=== PATIENT | female | born 1930 | race Caucasian/White ===

== ENCOUNTER → 2017-09-20 | Day surgery (SDC) | payer MEDICARE, BC ==
[~2017-09-20] VITALS: Ht 152.4 cm; Wt 53.5 kg
[~2017-09-20] MED LIST: *morphine SULFATE 10 MG/ML PERIprocedure ONLY ONE; ACETAMINOPHEN 1000 MG/100 ML 100 ML IV ONE; ACETAMINOPHEN/HYDROcodone 325 MG/5 MG TAB PO PRN; ATEN25TA PO; CHLORHEXIDINE GLUCONATE 2 % 1 PACK (2 CLOTHS) TOPICAL PRN; CHLORHEXIDINE GLUCONATE 4% SOLN 120 ML BTL TOPICAL SCH; DESL5TAB4 PO; DO NOT ADM ANY ANTICOAGULANT DRUGS PRN; GENTAMICIN SULFATE 80 MG/2 ML VIAL ONE; HYDR-3799 PO; HYDR200T3 PO; IBAN150T3 PO; LACTATED RINGER'S 1000 ML IV PRN; LANS30CA PO; LIDOCAINE HCL 1% PF 5 ML SYRINGE OTHER ONE; METOPROLOL TARTRATE 25 MG TAB PO PRN; MIRA50TA PO; MORPHINE SULFATE 4 MG/ML INJ IV PUSH PRN; NORC5TAB PO; OMEP40CA2 PO; POVIDONE IODINE 5% (ANTISEPSIS KIT) 4 APPLICATIONS EACH NARE PRN; PRED10 PO; PROPOFOL 200 MG/20 ML AMP IV ONE; VANCOMYCIN 1000 MG/NS 250 ML (for <70 kg) IV SCH; VENL150T PO; ceFAZolin 2 GM PREMIX 50 ML IV SCH
--- NOTE | 2017-09-20 08:29 | PD.OP ---
cc: Willard Del Real MD Operative Report Date of Surgery: Sep 20, 2017 Preoperative Diagnosis: Displaced left distal radius fracture Postoperative Diagnosis: Procedure: Open reduction and fixation left distal radius Anesthesia: Gen. Surgeon: Willard Del Real Tone Cabinet Assembler(s): MARLON Vicente PA-C The surgical procedure was assisted by my physician operating room assistant. My P.A. presence was necessary throughout this case for the manipulation and positioning of the surgical extremity. My P.A. was assisting me throughout the duration of this procedure. The skill set of a physician operating room assistant was medically necessary to complete this procedure. During the surgical case the surgical attendant was working at the back table and the physician operating room assistant was directly assisting me. Operation and Findings: Patient was seen and evaluated preoperatively and found to have a displaced left distal radius fracture. I saw and examined patient preoperatively. I discussed the risk and benefits of surgery in depth with the patient. All of her questions were answered. Informed consent was obtained after detailed discussion of risk and benefits including bleeding, infection, injury to arteries, nerves, and blood vessels, weakness and numbness of hand, and tendon rupture. Informed consent was obtained. Patient received IV antibiotics prior to incision. Timeout procedure was performed. Operative extremity was prepped with alcohol followed by Hibiclens and draped usual sterile fashion. A standard volar approach to the distal radius was utilized. A 3 inch incision was made over the FCR tendon. Tendon sheath was opened. Pronator quadratus was elevated up. The fracture site was now visualized. The fracture did have intra-articular extension. Traction was applied. The articular surface was reduced. Fracture fragments were manipulated to achieve excellent reduction. K wires were used to hold provisional fixation. Fluoroscopy confirmed appropriate alignment of fracture. A Synthes 2 column variable angle distal radius plate was selected. Plate was provisionally fixed to bone with K wires. 2.7 and 2.4 cortical screws were used to compress plate to bone. Fluoroscopy confirmed appropriate alignment of fracture with well-placed hardware. Multiple 2.4 locking screws were now placed distally. Screws were predrilled and measured for appropriate length. 2 additional screws were placed into the shaft. K wires were removed. Final fluoroscopy revealed excellent of fracture with well-placed hardware. The wound was thoroughly irrigated with sterile saline. Subcutaneous tissue was closed with 3-0 Vicryl and skin was closed with 3-0 nylon. Sterile dressings were applied with Xeroform, 4 x 4, soft roll , and a well padded volar splint. Patient was awakened and transferred to recovery room in stable condition Willard Del Real MD Sep 20, 2017 08:29
[2017-09-20 11:18] VITALS: BP 162/66; PULSE 58; RESP 16; TEMP 97.1; O2SAT 100
--- NOTE | 2017-09-20 14:55 | RADRPT ---
EXAM DATE/TIME: 09/20/2017 08:19 [facility] COMPARISON: No previous studies available for comparison. INDICATIONS : Reduction with screw and plate placement left wrist. MEDICAL HISTORY : None. SURGICAL HISTORY : None. ENCOUNTER: Initial ACUITY: 1 day PAIN SCORE: Non-responsive. LOCATION: Left Wrist. FINDINGS: Anatomic alignment with plate and screws bridging the fracture of the distal radius. CONCLUSION: Anatomic alignment. Drake Black MD FACR on September 20, 2017 at 14:52 Board Certified Radiologist. This report was verified electronically.
--- NOTE | 2017-09-20 20:40 | EKG ---
Date Performed: 09/20/2017 Time Performed: 06:46:00 PTAGE: 87 years EKG: SINUS BRADYCARDIA WITH FIRST DEGREE AV BLOCK ABNORMAL ECG NO PREVIOUS TRACING DOCTOR: Jaime Long Interpretating Date/Time 09/20/2017 20:39:25
== END | disposition home or self-care (01) ==
LOC: HSDC 05:21
PROVIDERS: ATTEND Orthopaedic Surgery Orthopaedic Trauma
DX: S52.502A Unspecified fracture of the lower end of left radius, initial encounter for closed fracture (principal); I10 Essential (primary) hypertension; W10.8XXA Fall (on) (from) other stairs and steps, initial encounter
CPT/HCPCS: 01830; 25609; 73100; 76000; 93005; C1713; J0131; J0690; J1580; J2270; J3010; J3370; J7050; J7120